=== PATIENT | female | born 1970 | race Asian ===

== ENCOUNTER 2017-08-06 22:38 | Emergency (ER) | payer OTHER ==
[~2017-08-06] VITALS: Ht 157.5 cm; Wt 82.0 kg
[2017-08-07 00:10] VITALS: BP 122/75
== END 2017-08-07 00:14 | disposition home or self-care (01) ==
LOC: ED 23:59
DX: F10.120 Alcohol abuse with intoxication, uncomplicated (principal); E11.9 Type 2 diabetes mellitus without complications
CPT/HCPCS: 99283

== ENCOUNTER 2017-08-08 02:31 | Emergency (ER) | payer OTHER ==
[~2017-08-08] VITALS: Ht 157.5 cm; Wt 80.0 kg
[2017-08-08 02:35] VITALS: BP 121/72
== END 2017-08-08 03:39 | disposition home or self-care (01) ==
LOC: ED 03:33
DX: F10.120 Alcohol abuse with intoxication, uncomplicated (principal); E11.9 Type 2 diabetes mellitus without complications; Z88.0 Allergy status to penicillin
CPT/HCPCS: 99283